=== PATIENT | female | born 1950 | race Two or more races ===

== ENCOUNTER → 2024-08-18 | Outpatient (CLI) | payer OTHER, MEDICAID, SELFPAY ==
--- NOTE | 2024-08-18 08:30 | XR_ITS ---
Examination: Thyroid sonography complete TECHNIQUE: Multiple high resolution grayscale sonographic images thyroid lobes with color flow analysis Exam date and time: August 18, 2024 0844 hours INDICATIONS: Thyroid cancer diagnosis thyroidectomy December 2023 FINDINGS: No soft tissue mass in the thyroid bed IMPRESSION: No soft tissue mass in the thyroid bed
[2024-08-18 11:00] LABS: Free T4 (Free Thyroxine) 1.58 ng/dL (0.89-1.76)
[2024-08-26 07:02] LABS: Thyroglobulin 0.1 ng/mL; Thyroglobulin Antibodies <1 IU/mL (< OR = 1)
[2024-09-01 08:30] LABS: Thyroglobulin Antibodies* DUPLICATE ORDER
== END | disposition home or self-care (01) ==
PROVIDERS: PCP Internal Medicine; Referring Provider Radiology Therapeutic Radiology; Visit Provider Radiology Therapeutic Radiology
DX: C73 Malignant neoplasm of thyroid gland (principal)
CPT/HCPCS: 36415; 76536; 84432; 84439; 84443; 86800

== ENCOUNTER 2024-10-20 08:43 | Outpatient (RCR) | payer MEDICARE, SELFPAY ==
--- NOTE | 2024-10-20 15:46 | CTCFLWUP_ITS ---
Rik Gupta [facility] [address] [place], [place] [address] FOLLOW-UP NOTE Date: 10/20/2024 MR#: [id number] Name: MANPREET SANCHEZ : [id number] Dx: [id number] Malignant neoplasm of thyroid gland Identification. Patient with stage I papillary thyroid carcinoma status post total thyroidectomy 01/07/2024 with postop radioiodine 30 mCi and whole-body iodine scan 05/18/2024 showed no evidence of mets. Currently on 100 mcg of Synthroid a day being followed by her primary care physician Dr. Dowling. Labs at [facility] 07/08/2024 to have elevated TSH of 19 Free T4 with thyroglobulin antibody less than 0.9 and thyroglobulin at 0.7. 1.27 Most recent lab 10/07/2024 at TSH at 0.150 ( 0.5 ? 5) and T4 free 1.82 (0.8 ? 1.8) An ultrasound of the thyroid region 08/18/2024 no tissue mass in the thyroid bed. Assessment #1 stage I papillary thyroid carcinoma status post total thyroidectomy 01/07/2024 postop radioiodine no sign of recurrence or met in total body iodine scan and recent ultrasound. #2. Recommended patient take a slightly lower dose of Synthroid at 137 mcg a day. Gave her 1 months worth with 1 month refill. #3. Recommend that patient be followed by her primary care doctor Dr. Dowling who I spoke with today, for low risk stage I cancer. #4. Recommend checking her labs TSH and FT4 keeping her euthyroid. For thyroid cancer patients we like TSH in the low normal range of 0.5 - 2 with T4 free in normal range. #5. Check thyroid functions above, along with thyroglobulin thyroglobulin antibody every 3 to 6 months. #6. Ultrasound thyroid region once a year for the next 3 years beginning next year. Had normal ultrasound 2 months ago. #7. Can be referred back for any concerns. Cc: Yelean Dowling MD (f) [phone] Mika Calle MD [phone] Electronically signed by: Sher Seymour M.D. 10/20/2024 3:44 PM
== END 2024-10-22 23:59 | disposition home or self-care (01) ==
LOC: SCTC 08:43
PROVIDERS: PCP Internal Medicine; Referring Provider Internal Medicine; Visit Provider Radiology Therapeutic Radiology
DX: C73 Malignant neoplasm of thyroid gland (principal); E89.0 Postprocedural hypothyroidism; Z92.3 Personal history of irradiation; Z79.890 Hormone replacement therapy
CPT/HCPCS: 99213; G0463